=== PATIENT | female | born 2005 | race African-American/Black ===

== ENCOUNTER 2023-02-25 10:22 | Outpatient (REF) | payer OTHER, SELFPAY ==
[2023-02-25 12:38] LABS: HCG Quantitative < 2 mIU/mL
== END 2023-02-25 10:23 | disposition home or self-care (01) ==
LOC: HO.LAB 10:22
PROVIDERS: Visit Provider Nurse Practitioner Family
DX: N92.6 Irregular menstruation, unspecified (principal); R11.0 Nausea
CPT/HCPCS: 36415; 84702

== ENCOUNTER → 2023-06-16 11:00 | Outpatient (BNV) | payer OTHER, SELFPAY ==
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
== END ==
PROVIDERS: PCP Nurse Practitioner Family; Visit Provider Nurse Practitioner Family
DX: N92.6 Irregular menstruation, unspecified (principal); N93.9 Abnormal uterine and vaginal bleeding, unspecified; F41.8 Other specified anxiety disorders; R53.83 Other fatigue
CPT/HCPCS: 99214

== ENCOUNTER → 2023-07-28 10:01 | Outpatient (BNV) | payer OTHER, SELFPAY ==
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
== END ==
PROVIDERS: PCP Nurse Practitioner Family; Visit Provider Nurse Practitioner Family
DX: N92.6 Irregular menstruation, unspecified (principal); Z30.09 Encounter for other general counseling and advice on contraception
CPT/HCPCS: 99214